=== PATIENT | female | born 1940 | race Caucasian/White ===

== ENCOUNTER 2017-01-20 09:08 | Day surgery (SDC) | payer MEDICARE, OTHER ==
[~2017-01-20 09:08] MED LIST: Propofol 200 MG/20 ML SDV ONE
[2017-01-20] MEDS ORDERED: Lactated Ringers 1,000 ML IV SCH (09:45)
[2017-01-20] MEDS ORDERED: Cyanocobalamin (Vitamin B12) 1,000 MCG/ML SDV IM ONE (10:00)
[2017-01-20] MEDS ORDERED: Glycopyrrolate 0.2 MG/ML 2 ML SYRINGE IVPUSH ONE (10:15)
[2017-01-20] MEDS ORDERED: MVI, Adult with Vitamin K 10 ML, Thiamine 200 MG, Chromium/Copper/Mang/Selen/Zn 1 ML in... IV ONE ×8 (11:00)
[2017-01-20 14:02] VITALS: BP 142/79
--- NOTE | 2017-01-26 14:40 | OR ---
DATE OF PROCEDURE: 01/20/2017 PREOPERATIVE DIAGNOSES: Upper abdominal pain and dysphagia. POSTOPERATIVE DIAGNOSES: 1. Normal upper GI endoscopic examination, status post Gene-en-Y gastric bypass. 2. Quite thickened salivary secretions. OPERATIVE PROCEDURE: Upper GI endoscopy with dilation of gastrojejunostomy (minimal if any size change occurred). ANESTHESIA: IV sedation. INDICATION FOR PROCEDURE: This is a 76-year-old female with status post Gene-en-Y gastric bypass in 2006. She presently has been on Protonix 40 mg a day for epigastric discomfort. She has a little of that, but most of the problem at this point is dysphagia referable to the mid and lower chest. Plan is proceed with an upper GI endoscopy with biopsies and/or dilation as indicated. Potential risks including bleeding and perforation were discussed, and the patient wishes to proceed. DETAILS OF PROCEDURE: The patient was taken to the operating room, placed in a left lateral decubitus position. IV sedation was administered, after which the upper GI endoscope was passed orally through the length of the esophagus and into the gastric pouch and from there through the gastrojejunostomy roughly 20 cm into the Gene limb. Findings included normal hypopharynx, larynx, upper esophageal sphincter, and esophageal body. At the EG junction, there was no significant hiatal hernia or inflammation noted within the pouch. There was no significant redness or signs of inflammation there or at the gastrojejunostomy. Gastrojejunostomy was widely patent with the scope easily being passed through that area. The remaining portion of the Gene limb was unremarkable. At this point in an attempt to perhaps increase the diameter of the gastrojejunostomy, a 54- Divehi balloon catheter was inflated and centered over the anastomosis. This was noted to result in minimal, if any, change in the size of the gastrojejunostomy. The scope was then withdrawn. The above findings reconfirmed. The only real positive finding in this case was that her secretions were quite thick and somewhat desiccated. This may be the case where the patient is not getting enough liquids and causing the secretions to become quite thickened. Postoperatively, the patient's will be advised to work on maximizing her hydration, she will be following up with Niesha Crain PA-C in 1 month. Lonnie Rodriguez MD /[id number]
== END 2017-01-20 15:02 | disposition home or self-care (01) ==
LOC: JP.SDS 09:08
PROVIDERS: ATTEND Surgery
DX: R10.10 Upper abdominal pain, unspecified (principal); R13.10 Dysphagia, unspecified; Z98.84 Bariatric surgery status; I10 Essential (primary) hypertension; K21.9 Gastro-esophageal reflux disease without esophagitis; Z88.0 Allergy status to penicillin; Z88.1 Allergy status to other antibiotic agents; Z88.2 Allergy status to sulfonamides; Z88.8 Allergy status to other drugs, medicaments and biological substances; Z91.041 Radiographic dye allergy status
CPT/HCPCS: 43245; J2704; J3411; J3420; J7120